=== PATIENT | female | born 2000 | race American Indian/Alaskan Native ===

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

== ENCOUNTER 2018-06-05 22:20 | Emergency (ER) | payer MEDICAID, OTHER ==
[2018-06-05] MEDS: Sodium Chloride 0.9% 10 ML Syringe FLUSH PRN (23:15)
[2018-06-05] MEDS ORDERED: Ondansetron 4 MG/2 ML SDV IV ONE (23:55)
[2018-06-05] MEDS ORDERED: Sodium Chloride 0.9% 1,000 ML IV ONE (23:55)
[2018-06-05] MEDS ORDERED: HYDROmorphone 1 MG/ML Syringe IVPUSH ONE (23:55)
[2018-06-05 23:56] LABS: ANION GAP 13.7; CHLORIDE,CL 104 mmol/L (101-111); SODIUM,NA 138 mmol/L (135-145)
[2018-06-06] MEDS ORDERED: Iopamidol 612 MG/ML 75 ML Bottle IVPUSH ONE (00:07)
[2018-06-06] MEDS ORDERED: Metoclopramide 10 MG/2 ML SDV IVPUSH ONE (01:46)
--- NOTE | 2018-06-06 01:46 | EDM.PDOC ---
ED HPI GENERAL MEDICAL PROBLEM - General Chief Complaint: Abdominal Pain Stated Complaint: APPY? Time Seen by Provider: 06/05/18 23:17 Source of Information: Reports: Patient, RN, RN Notes Reviewed History Limitations: Reports: No Limitations - History of Present Illness INITIAL COMMENTS - FREE TEXT/NARRATIVE: Pt to ER with c/o abdominal pain in the RLQ, sharp shooting pain which began about 15 minutes prior to arrival. She rates the pain 7/10. Admits to N/V, fever , chills. Denies diarrhea. Patient states she still has her appendix and gallbladder. LMP was beginning of May as stated by patient. Onset: Today, Sudden Right Lower Abdomen Pain Score (Numeric/FACES): 9 - Related Data Allergies Allergy/AdvReac Type Severity Reaction Status Date / Time No Known Allergies Allergy Verified 06/05/18 22:46 Home Meds: Home Meds . [No Known Home Meds] 02/25/17 [History] Past Medical History HEENT History: Reports: None Cardiovascular History: Reports: None Respiratory History: Reports: Asthma Gastrointestinal History: Reports: None Genitourinary History: Reports: STD CHEMIST STEROIDS History: Reports: Musculoskeletal History: Reports: None Neurological History: Reports: None Psychiatric History: Reports: None Endocrine/Metabolic History: Reports: None Hematologic History: Reports: None Immunologic History: Reports: None Oncologic (Cancer) History: Reports: None Dermatologic History: Reports: None - Infectious Disease History Infectious Disease History: Reports: Chicken Pox - Past Surgical History Head Surgeries/Procedures: Reports: None HEENT Surgical History: Reports: None Other HEENT Surgeries/Procedures: Dental surgery Cardiovascular Surgical History: Reports: None Respiratory Surgical History: Reports: None GI Surgical History: Reports: None Endocrine Surgical History: Reports: None Neurological Surgical History: Reports: None Oncologic Surgical History: Reports: None Dermatological Surgical History: Reports: None Social & Family History - Family History Family Medical History: Noncontributory Cardiac: Reports: MS GI: Reports: Cirrhosis Oncologic: Reports: Other (See Below) - Tobacco Use Smoking Status *Q: Never Smoker Second Hand Smoke Exposure: No - Caffeine Use Caffeine Use: Reports: Soda - Recreational Drug Use Recreational Drug Use: No - Living Situation & Occupation Living situation: Reports: Single, with Family Occupation: Employed ED ROS GENERAL - Review of Systems Review Of Systems: ROS reveals no pertinent complaints other than HPI. ED EXAM, GI/ABD - Physical Exam Exam: See Below Exam Limited By: No Limitations General Appearance: Alert, WD/WN, Moderate Distress Eyes: Bilateral: Normal Appearance, EOMI Ears: Normal External Exam, Hearing Grossly Normal Nose: Normal Inspection Throat/Mouth: Normal Inspection, Normal Voice, No Airway Compromise Head: Atraumatic, Normocephalic Neck: Normal Inspection, Supple, Non-Tender, Full Range of Motion Respiratory/Chest: No Respiratory Distress, Lungs Clear, Normal Breath Sounds, No Accessory Muscle Use, Chest Non-Tender Cardiovascular: Normal Peripheral Pulses, Regular Rate, Rhythm, No Edema, No Gallop, No JVD, No Murmur, No Rub GI/Abdominal Exam: Normal Bowel Sounds, Soft, Tender (RLQ) (Female) Exam: Deferred Rectal (Female) Exam: Deferred Back Exam: Normal Inspection, Full Range of Motion Extremities: Normal Inspection, Normal Range of Motion, Non-Tender, Normal Capillary Refill, No Pedal Edema Neurological: Alert, Oriented, CN II-XII Intact, Normal Cognition, Normal Gait, Normal Reflexes, No Motor/Sensory Deficits Psychiatric: Anxious, Tearful Skin Exam: Warm, Dry, Intact, Normal Color, No Rash Lymphatic: No Adenopathy Course - Vital Signs Last Recorded V/S: Last Vital Signs Temp 98.3 F 06/06/18 02:45 Pulse 72 06/06/18 02:45 Resp 16 06/06/18 02:45 BP 102/57 L 06/06/18 02:45 Pulse Ox 99 06/06/18 02:45 - Orders/Labs/Meds Orders: Active Orders 24 hr Category Date Time Status Peripheral IV Care [RC] . DIRECTED Care 06/05/18 23:05 Active Abdomen Pelvis w Cont [CT] Urgent Exams 06/06/18 00:01 Taken CULTURE BLOOD [BC] Stat Lab 06/05/18 23:13 Received CULTURE BLOOD [BC] Stat Lab 06/05/18 23:19 Received Sodium Chloride 0.9% [Saline Flush] Med 06/05/18 23:03 Active 10 ml FLUSH ASDIRECTED PRN Blood Culture x2 Reflex Set [OM.PC] Stat Oth 06/05/18 23:05 Ordered Peripheral IV Insertion Adult [OM.PC] Stat Oth 06/05/18 23:05 Ordered Medication Orders Sodium Chloride (Saline Flush) 10 ml FLUSH ASDIRECTED PRN PRN Reason: Keep Vein Open Last Admin: 06/06/18 02:19 Dose: 10 ml Admin: 06/05/18 23:15 Dose: 10 ml Labs: Laboratory Tests 06/05/18 06/05/18 06/05/18 Range/Units 22:53 22:53 22:53 WBC (5.0-10.0) 10^3/uL RBC (4.2-5.4) 10^6/uL Hgb (12.0-16.0) g/dL Hct (37.0-47.0) % MCV (80-100) fL MCH (27.0-34.0) pg MCHC (33.0-35.0) g/dL Plt Count (150-450) 10^3/uL Neut % (Auto) (42.2-75.2) % Lymph % (Auto) (20.5-50.1) % [place] % (Auto) (2-8) % Eos % (Auto) (1.0-3.0) % Baso % (Auto) (0.0-1.0) % Sodium (135-145) mmol/L Potassium (3.6-5.0) mmol/L Chloride (101-111) mmol/L Carbon Dioxide (21.0-31.0) mmol/L Anion Gap BUN (7-18) mg/dL Creatinine (0.6-1.3) mg/dL Est Cr Clr Drug Dosing mL/min Estimated GFR (MDRD) BUN/Creatinine Ratio Glucose (74-105) mg/dL Lactic Acid (0.5-2.2) mmol/L Calcium (8.4-10.2) mg/dl Total Bilirubin (0.2-1.0) mg/dL AST (10-42) IU/L ALT (10-60) IU/L Alkaline Phosphatase (42-121) IU/L Total Protein (6.7-8.2) g/dl Albumin (3.2-5.5) g/dl Globulin Albumin/Globulin Ratio Amylase (28-100) U/L Lipase (22-51) U/L Urine Color Yellow (YELLOW) Urine Appearance Clear (CLEAR) Urine pH 6.5 (5.0-9.0) Ur Specific [place] 1.025 (1.005-1.030) Urine Protein Negative (NEGATIVE) Urine Glucose (UA) Negative (NEGATIVE) Urine Ketones Negative (NEGATIVE) Urine Occult Blood Negative (NEGATIVE) Urine Nitrite Negative (NEGATIVE) Urine Bilirubin Negative (NEGATIVE) Urine Urobilinogen 0.2 (0.2-1.0) mg/dL Ur Leukocyte Esterase Negative (NEGATIVE) Urine HCG, Qual Negative Urine Opiates Screen Negative (NEGATIVE) Ur Oxycodone Screen Negative (NEGATIVE) Urine Methadone Screen Negative (NEGATIVE) Ur Barbiturates Screen Negative (NEGATIVE) U Tricyclic Antidepress Negative (NEGATIVE) Ur Phencyclidine Scrn Negative (NEGATIVE) Ur Amphetamine Screen Negative (NEGATIVE) U Methamphetamines Scrn Negative (NEGATIVE) Urine MDMA Screen Negative (NEGATIVE) U Benzodiazepines Scrn Negative (NEGATIVE) Urine Cocaine Screen Negative (NEGATIVE) U Marijuana (THC) Screen Positive H (NEGATIVE) 06/05/18 06/05/18 06/05/18 Range/Units 23:13 23:13 23:13 WBC 10.5 H (5.0-10.0) 10^3/uL RBC 4.68 (4.2-5.4) 10^6/uL Hgb 13.6 D (12.0-16.0) g/dL Hct 39.9 (37.0-47.0) % MCV 85.3 (80-100) fL MCH 29.1 (27.0-34.0) pg MCHC 34.1 (33.0-35.0) g/dL Plt Count 312 (150-450) 10^3/uL Neut % (Auto) 59.9 (42.2-75.2) % Lymph % (Auto) 31.2 (20.5-50.1) % [place] % (Auto) 7.6 (2-8) % Eos % (Auto) 1.1 (1.0-3.0) % Baso % (Auto) 0.2 (0.0-1.0) % Sodium 138 (135-145) mmol/L Potassium 3.7 (3.6-5.0) mmol/L Chloride 104 (101-111) mmol/L Carbon Dioxide 24.0 (21.0-31.0) mmol/L Anion Gap 13.7 BUN 11 (7-18) mg/dL Creatinine 0.7 (0.6-1.3) mg/dL Est Cr Clr Drug Dosing 106.05 mL/min Estimated GFR (MDRD) > 60 BUN/Creatinine Ratio 15.71 Glucose 85 (74-105) mg/dL Lactic Acid 0.8 (0.5-2.2) mmol/L Calcium 9.0 (8.4-10.2) mg/dl Total Bilirubin 0.5 (0.2-1.0) mg/dL AST 22 (10-42) IU/L ALT 14 (10-60) IU/L Alkaline Phosphatase 59 (42-121) IU/L Total Protein 7.4 (6.7-8.2) g/dl Albumin 4.0 (3.2-5.5) g/dl Globulin 3.4 Albumin/Globulin Ratio 1.18 Amylase 49 (28-100) U/L Lipase 34 (22-51) U/L Urine Color (YELLOW) Urine Appearance (CLEAR) Urine pH (5.0-9.0) Ur Specific [place] (1.005-1.030) Urine Protein (NEGATIVE) Urine Glucose (UA) (NEGATIVE) Urine Ketones (NEGATIVE) Urine Occult Blood (NEGATIVE) Urine Nitrite (NEGATIVE) Urine Bilirubin (NEGATIVE) Urine Urobilinogen (0.2-1.0) mg/dL Ur Leukocyte Esterase (NEGATIVE) Urine HCG, Qual Urine Opiates Screen (NEGATIVE) Ur Oxycodone Screen (NEGATIVE) Urine Methadone Screen (NEGATIVE) Ur Barbiturates Screen (NEGATIVE) U Tricyclic Antidepress (NEGATIVE) Ur Phencyclidine Scrn (NEGATIVE) Ur Amphetamine Screen (NEGATIVE) U Methamphetamines Scrn (NEGATIVE) Urine MDMA Screen (NEGATIVE) U Benzodiazepines Scrn (NEGATIVE) Urine Cocaine Screen (NEGATIVE) U Marijuana (THC) Screen (NEGATIVE) Meds: Medications Generic Name Dose Route Start Last Admin Trade Name Freq PRN Reason Stop Dose Admin Sodium Chloride 10 ml 06/05/18 23:03 06/06/18 02:19 Saline Flush FLUSH 10 ml ASDIRECTED PRN Administration Keep Vein Open Discontinued Medications Generic Name Dose Route Start Last Admin Trade Name Freq PRN Reason Stop Dose Admin Hydromorphone HCl 1 mg 06/05/18 23:55 06/06/18 00:03 Dilaudid IVPUSH 06/05/18 23:56 1 mg ONETIME ONE Administration Sodium Chloride 1,000 mls @ 999 mls/hr 06/05/18 23:55 06/06/18 00:03 Normal Saline IV 06/06/18 00:55 999 mls/hr .BOLUS ONE Administration Iopamidol 75 ml 06/06/18 00:07 Isovue-300 (61%) IVPUSH 06/06/18 00:08 ONETIME ONE Metoclopramide HCl 10 mg 06/06/18 01:46 06/06/18 02:19 Reglan IVPUSH 06/06/18 01:47 10 mg ONETIME ONE Administration Ondansetron HCl 4 mg 06/05/18 23:55 06/06/18 00:04 Zofran IV 06/05/18 23:56 4 mg ONETIME ONE Administration - Radiology Interpretation Free Text/Narrative:: Abdomen/Pelvis CT with contrast: FINDINGS: Lower thorax: There are no suspicious pulmonary nodules or areas of lung consolidation. ABDOMEN: Liver: The liver is normal in architecture, without suspicious abnormality. Gallbladder and bile ducts: No calcified gallstones. No ductal dilation. Pancreas: The pancreatic parenchyma is normal in bulk and sharply marginated. Duct is not dilated. No calcifications, masses, or abnormal fluid collections. Spleen: Spleen is normal in size. No mass or fluid collection. Adrenals: There are no adrenal masses. Kidneys and ureters: Normal in parenchymal bulk. No hydronephrosis or asymmetric perinephric stranding. No solid masses. No stones. Stomach and bowel: No significant abnormalities of the stomach. There are no dilated or thickened small bowel loops. Gas and stool of appropriate quantities are seen in the colon. No mass. Appendix: The appendix is seen. It is normal. PELVIS: Bladder: Eccentric bladder wall thickening is nonspecific, but could be cystitis. Reproductive: The uterus and ovaries are within normal limits. There are no adenexal masses. ABDOMEN and PELVIS: Intraperitoneal space: No ascites. No abscess. No inflammation within the intra- abdominal fat. No pneumoperitoneum. No mass. Bones/joints: There is L5 spondylolysis. Soft tissues: See Intraperitoneal Space Finding. Vasculature: Normal. No abdominal aortic aneurysm. Lymph nodes: There are no enlarged celiac, mesenteric, periportal, extraperitoneal or inguinal lymph nodes. IMPRESSION: 1. Eccentric bladder wall thickening is nonspecific, but could be cystitis. 2. Normal appendix. Thank you for allowing us to participate in the care of your patient. Dictated and Authenticated by: Candelario Saucedo MD 06/06/2018 1:26 AM Central Time ([place] & [place]) See rad report Departure - Departure Time of Disposition: 02:50 Disposition: Home, Self-Care 01 Condition: Fair Clinical Impression: Gastroenteritis Constipation Qualifiers: Constipation type: unspecified constipation type Qualified Code(s): K59.00 - Constipation, unspecified - Discharge Information *PRESCRIPTION DRUG MONITORING PROGRAM REVIEWED*: No *COPY OF PRESCRIPTION DRUG MONITORING REPORT IN PATIENT MARINA: No Instructions: Viral Gastroenteritis, Adult, [id number], Constipation, Adult, [id number], Nausea and Vomiting, Adult, [id number], Abdominal Pain, Adult, [id number] Referrals: PCP,None [Ordering Only Provider] - Forms: ED Department Discharge Additional Instructions: Only ice chips if nauseated When not nauseated drink plenty of water Rest Follow up with your primary care facility - My Orders Last 24 Hours: My Active Orders 06/05/18 23:03 Sodium Chloride 0.9% [Saline Flush] 10 ml FLUSH ASDIRECTED PRN 06/05/18 23:05 Peripheral IV Care [RC] . DIRECTED Blood Culture x2 Reflex Set [OM.PC] Stat Peripheral IV Insertion Adult [OM.PC] Stat 06/05/18 23:13 CULTURE BLOOD [BC] Stat 06/05/18 23:19 CULTURE BLOOD [BC] Stat 06/06/18 00:01 Abdomen Pelvis w Cont [CT] Urgent - Assessment/Plan Last 24 Hours: My Active Orders 06/05/18 23:03 Sodium Chloride 0.9% [Saline Flush] 10 ml FLUSH ASDIRECTED PRN 06/05/18 23:05 Peripheral IV Care [RC] . DIRECTED Blood Culture x2 Reflex Set [OM.PC] Stat Peripheral IV Insertion Adult [OM.PC] Stat 06/05/18 23:13 CULTURE BLOOD [BC] Stat 06/05/18 23:19 CULTURE BLOOD [BC] Stat 06/06/18 00:01 Abdomen Pelvis w Cont [CT] Urgent
[2018-06-06] MEDS: Sodium Chloride 0.9% 10 ML Syringe FLUSH PRN (02:19)
[2018-06-06 02:58] VITALS: BP 102/57
== END 2018-06-06 02:49 | disposition home or self-care (01) ==
LOC: DL.ED 22:20
DX: K52.9 Noninfective gastroenteritis and colitis, unspecified (principal); K59.00 Constipation, unspecified
CPT/HCPCS: 36415; 74177; 80053; 80305; 81003; 81025; 82150; 83605; 83690; 85025; 87040; 96361; 96374; 96375; 99284; J1170; J2405; J2765; J7030; Q9967

== ENCOUNTER 2018-12-23 10:58 | Emergency (ER) | payer MEDICAID ==
[2018-12-23] MEDS ORDERED: Ondansetron 4 MG/2 ML SDV IV ONE (11:27)
[2018-12-23 11:44] LABS: ANION GAP 13.9; CHLORIDE,CL 107 mmol/L (101-111); SODIUM,NA 140 mmol/L (135-145)
--- NOTE | 2018-12-23 12:25 | EDM.PDOC ---
Scribed by Usha Mo 12/23/18 1124 for Sean Stallworth PA ED HPI GENERAL MEDICAL PROBLEM - General Chief Complaint: Trauma Stated Complaint: FALL THROWING UP BLOOD Time Seen by Provider: 12/23/18 11:14 Source of Information: Reports: Patient, RN, RN Notes Reviewed History Limitations: Reports: No Limitations - History of Present Illness INITIAL COMMENTS - FREE TEXT/NARRATIVE: HPI: This 18 yo female patient reports to the ED with her friend due to right posterior head pain, bleeding from her right ear and vomiting blood. The patient reports she fell last night and hit her right posterior head on a car. The patient reports she did have a loss of consciousness after hitting her head. The patient reports increased pain, bleeding from the ear and vomiting this morning. Primary Survey Airway: open and patient Breathing: regular without additional effort Circulation: no major bleeding noted Deformity: no deformity noted Expose: as appropriate GCS: 15 Secondary Survey HEENT Head: Tenderness to the right posterior scalp, over the right mastoid ( posterior to right ear) Eyes: PERRLA Ears: Right canal has blood within the canal, reports pain in the area and dried blood on the pinna Nose: no deformity, no bleeding, mucosa moist Mouth: no noted trauma Throat: no abnormalities noted Neck: Subtle, normal range of motion no cervical tenderness Chest: lung sounds were clear and equal bilaterally Heart: RRR, no murmurs, rubs or gallop Abdomen: normoactive bowel sounds, no organomegally, no tenderness on palpation Pelvis: stable Extremities: CMS intact Provider Trauma Notes Arrival Time: 1110 GCS on Arrival: 15 C-collar present on arrival: No GCS at 1 hour: Off spine board: NA Time primary survey: 1113 Time secondary survey: 1120 Time C-collar cleared: By: Time removed: GCS on discharge: Onset: Today Onset Date: 12/23/18 Onset Time: 01:00 Duration: Constant, Getting Worse Location: Reports: Head (right posterior scalp, right ear bleeding) Quality: Reports: Other Severity: Moderate Improves with: Reports: None Worsens with: Reports: None Context: Reports: Trauma (Fell hit head with loss of consciousness) - Related Data Allergies Allergy/AdvReac Type Severity Reaction Status Date / Time No Known Allergies Allergy Verified 06/05/18 22:46 Home Meds: Home Meds . 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: Musculoskeletal History: Reports: None Neurological History: Reports: None Psychiatric History: Reports: None Endocrine/Metabolic History: Reports: None Hematologic History: Reports: None Immunologic History: Reports: None Oncologic (Cancer) History: Reports: None Dermatologic History: Reports: None - Infectious Disease History Infectious Disease History: Reports: Chicken Pox - Past Surgical History Head Surgeries/Procedures: Reports: None HEENT Surgical History: Reports: None Other HEENT Surgeries/Procedures: Dental surgery Cardiovascular Surgical History: Reports: None Respiratory Surgical History: Reports: None GI Surgical History: Reports: None Endocrine Surgical History: Reports: None Neurological Surgical History: Reports: None Oncologic Surgical History: Reports: None Dermatological Surgical History: Reports: None Social & Family History - Family History Family Medical History: Noncontributory Cardiac: Reports: [facility]: Reports: Cirrhosis Oncologic: Reports: Other (See Below) - Caffeine Use Caffeine Use: Reports: Soda - Living Situation & Occupation Living situation: Reports: Single, with Family Occupation: Employed Review of Systems - Review of Systems Review Of Systems: ROS reveals no pertinent complaints other than HPI. ED EXAM, GENERAL - Physical Exam Exam: See Below Exam Limited By: No Limitations General Appearance: Alert, WD/WN, Moderate Distress Eye Exam: Bilateral Eye: EOMI, Normal Inspection, PERRL Ear Exam: Right Ear: Other (blood in the right canal with dried blood to her right pinna) Nose: Normal Inspection, Normal Mucosa, No Blood Throat/Mouth: Normal Inspection, Normal Lips, Normal Teeth, Normal Gums, Normal Oropharynx, Normal Voice, No Airway Compromise Head: Other (Right posterior scalp tenderness to palpation with hematoma) Neck: Limited Range of Motion (due to right posterior scalp pain) Respiratory/Chest: No Respiratory Distress, Lungs Clear, Normal Breath Sounds, No Accessory Muscle Use, Chest Non-Tender Cardiovascular: Normal Peripheral Pulses, Regular Rate, Rhythm, No Edema, No Gallop, No JVD, No Murmur, No Rub GI/Abdominal: Normal Bowel Sounds, Soft, Non-Tender, No Organomegaly, No Distention, No Abnormal Bruit, No Mass (Female) Exam: Deferred Rectal (Female) Exam: Deferred Back Exam: Normal Inspection, Full Range of Motion, NT Extremities: Normal Inspection, Normal Range of Motion, Non-Tender, Normal Capillary Refill, No Pedal Edema Neurological: Alert, Oriented, CN II-XII Intact, Normal Cognition, Normal Gait, Normal Reflexes, No Motor/Sensory Deficits Psychiatric: Normal Affect, Normal Mood Skin Exam: Warm, Dry, Intact, Normal Color, No Rash Lymphatic: No Adenopathy Course - Orders/Labs/Meds Orders: Active Orders 24 hr Category Date Time Status Cervical Spine wo Cont [CT] Urgent Exams 12/23/18 11:17 Ordered Head wo Cont [CT] Urgent Exams 12/23/18 11:17 Ordered DRUG SCREEN URINE BIORAD [URCHEM] Stat Lab 12/23/18 11:17 Ordered HCG QUALITATIVE,URINE [URCHEM] Stat Lab 12/23/18 11:17 Ordered UA RFX ASHLEY AND CULT IF INDIC [URIN] Urgent Lab 12/23/18 11:17 Ordered Labs: Laboratory Tests 12/23/18 12/23/18 Range/Units 11:16 11:16 WBC 18.7 H (5.0-10.0) 10^3/uL RBC 5.25 (4.2-5.4) 10^6/uL Hgb 15.3 D (12.0-16.0) g/dL Hct 44.9 (37.0-47.0) % MCV 85.5 (80-100) fL MCH 29.1 (27.0-34.0) pg MCHC 34.1 (33.0-35.0) g/dL Plt Count 326 (150-450) 10^3/uL Neut % (Auto) 89.4 H (42.2-75.2) % Lymph % (Auto) 7.5 L (20.5-50.1) % Noble % (Auto) 2.9 (2-8) % Eos % (Auto) 0.0 L (1.0-3.0) % Baso % (Auto) 0.2 (0.0-1.0) % Sodium 140 (135-145) mmol/L Potassium 3.9 (3.6-5.0) mmol/L Chloride 107 (101-111) mmol/L Carbon Dioxide 23.0 (21.0-31.0) mmol/L Anion Gap 13.9 BUN 8 (7-18) mg/dL Creatinine 0.6 (0.6-1.3) mg/dL Est Cr Clr Drug Dosing TNP Estimated GFR (MDRD) > 60 BUN/Creatinine Ratio 13.33 Glucose 132 H (74-105) mg/dL Calcium 9.0 (8.4-10.2) mg/dl Total Bilirubin 0.7 (0.2-1.0) mg/dL AST 27 (10-42) IU/L ALT 17 (10-60) IU/L Alkaline Phosphatase 54 (42-121) IU/L Total Protein 8.2 (6.7-8.2) g/dl Albumin 4.6 (3.2-5.5) g/dl Globulin 3.6 Albumin/Globulin Ratio 1.28 Meds: Medications Discontinued Medications Generic Name Dose Route Start Last Admin Trade Name Freq PRN Reason Stop Dose Admin Ondansetron HCl 4 mg 12/23/18 11:27 12/23/18 11:41 Zofran IV 12/23/18 11:28 4 mg ONETIME ONE Administration - Radiology Interpretation Free Text/Narrative:: EXAM: CT Head Without Contrast EXAM DATE/TIME: 12/23/2018 11:26 AM CLINICAL HISTORY: 18 years old, female; Injury or trauma; Initial encounter; Blunt trauma ( contusions or hematomas); Consciousness not specified; Injury date: 12-23-18; Injury details: Fall approx. 1 this am. Blood from ear TECHNIQUE: Imaging protocol: Computed tomography images of the head without contrast. Radiation optimization: All CT scans at this facility use at least one of these dose optimization techniques: automated exposure control; mA and/or kV adjustment per patient size (includes targeted exams where dose is matched to clinical indication); or iterative reconstruction. COMPARISON: No relevant prior studies available. FINDINGS: Brain: Subtle thickening and elevated density related to be right tentorium raises concern for trace subdural hemorrhage, measuring 1-2 mm. 24 hour followup is recommended to assure stability. Ventricles: Normal. No ventriculomegaly. Bones/joints: There is a right parietal scalp contusion, without underlying fracture. Sinuses: Visualized sinuses are unremarkable. No fluid levels. Mastoid air cells: See Auditory System Finding. Auditory system: Reportedly, the patient has a history of hemorrhage at the right external auditory meatus. There is fluid within the middle ear and external auditory meatus. No opacification of the right mastoid air cells is appreciated. Several punctate foci of gas within the right transverse sinus are present. These findings suggest the possibility of an occult right temporal bone fracture, below the limit of resolution on 5 mm sections. Soft tissues: Unremarkable. IMPRESSION: 1. Subtle thickening and elevated density related to be right tentorium raises concern for trace subdural hemorrhage, measuring 1-2 mm. 24 hour followup is recommended to assure stability. 2. There is fluid within the middle ear and external auditory meatus, likely hemorrhage. No opacification of the right mastoid air cells is appreciated. Several punctate foci of gas within the right transverse sinus are present. These findings suggest the possibility of an occult right temporal bone fracture, below the limit of resolution on 5 mm sections. If clinically warranted, high resolution CT scan of the temporal bones could be considered for further characterization Thank you for allowing us to participate in the care of your patient. Dictated and Authenticated by: Marciano Alves MD 12/23/2018 11:44 AM Central Time ([place] & [place]) EXAM: CT Cervical Spine Without Contrast EXAM DATE/TIME: 12/23/2018 11:26 AM CLINICAL HISTORY: 18 years old, female; Injury or trauma; Initial encounter; Blunt trauma; Injury date: 12-23-18; Injury details: Fall 1:00 this am. Blood from ear TECHNIQUE: Imaging protocol: Computed tomography images of the cervical spine without contrast. Radiation optimization: All CT scans at this facility use at least one of these dose optimization techniques: automated exposure control; mA and/or kV adjustment per patient size (includes targeted exams where dose is matched to clinical indication); or iterative reconstruction. COMPARISON: No relevant prior studies available. FINDINGS: Vertebrae: There is smooth reversal of the normal cervical lordosis. This may represent muscle spasm or patient positioning. No fracture or subluxation Discs/Spinal canal/Neural foramina: No spinal stenosis. No neural foraminal narrowing. There is fluid within the right external auditory meatus and right middle ear cavity, consistent with hemorrhage. Possible longitudinal right temporal bone fracture is suggested on several images, though the region is partially visualized. Right mastoid air cells are well- aerated. If clinically warranted, dedicated CT scan of the temporal bones could be considered for better characterization Soft tissues: See Vertebrae Finding. Lungs: Lung apices are normal. IMPRESSION: No spinal fracture or subluxation There is fluid within the right external auditory meatus and right middle ear cavity, consistent with hemorrhage. Possible nondisplaced longitudinal right temporal bone fracture is suggested on several images, though the region is partially visualized. Right mastoid air cells are well-aerated. If clinically warranted, dedicated CT scan of the temporal bones could be considered for better characterization Thank you for allowing us to participate in the care of your patient. Dictated and Authenticated by: Marciano Alves MD 12/23/2018 11:47 AM Central Time ([place] & [place]) Departure - Departure Time of Disposition: 12:21 Disposition: DC/Tfer to [facility] 02 Condition: Fair Clinical Impression: Subdural hemorrhage, Head injury with loss of consciousness - Discharge Information *PRESCRIPTION DRUG MONITORING PROGRAM REVIEWED*: Not Applicable *COPY OF PRESCRIPTION DRUG MONITORING REPORT IN PATIENT MARINA: Not Applicable Forms: Interfacility Transfer EMTALA Care Plan Goals: Discussed the patient's history, examination, lab and CT results with Dr. Ferrer (ED at [facility]). Dr. Ferrer accepted the patient for continued evaluation and management. The patient will be transported by [facility]. - My Orders Last 24 Hours: My Active Orders 12/23/18 11:17 Cervical Spine wo Cont [CT] Urgent Head wo Cont [CT] Urgent DRUG SCREEN URINE BIORAD [URCHEM] Stat HCG QUALITATIVE,URINE [URCHEM] Stat UA RFX ASHLEY AND CULT IF INDIC [URIN] Urgent - Assessment/Plan Last 24 Hours: My Active Orders 12/23/18 11:17 Cervical Spine wo Cont [CT] Urgent Head wo Cont [CT] Urgent DRUG SCREEN URINE BIORAD [URCHEM] Stat HCG QUALITATIVE,URINE [URCHEM] Stat UA RFX ASHLEY AND CULT IF INDIC [URIN] Urgent I have read and agree with the documentation that has been completed regarding this visit. By signing this record, I attest that the documentation was completed in my physical presence and is an accurate record of the encounter.
== END 2018-12-23 12:25 ==
LOC: DL.ED 10:58
DX: S06.5X9A Traumatic subdural hemorrhage with loss of consciousness of unspecified duration, initial encounter (principal); W19.XXXA Unspecified fall, initial encounter; W22.8XXA Striking against or struck by other objects, initial encounter
CPT/HCPCS: 36415; 70450; 72125; 80053; 85025; 96374; 99285; G0390; J2405